=== PATIENT | female | born 1945 | race Caucasian/White ===

== ENCOUNTER → 2020-03-16 08:38 | Outpatient (CLI) | payer MEDICARE, SELFPAY ==
--- NOTE | ~2020-03-16 | US_ITS ---
US renal BI 03/16/2020 09:01 Procedure: Realtime transabdominal ultrasound of the kidneys and bladder. Indication: Chronic kidney disease Comparison: No prior studies for comparison. Findings: Renal echotexture is normal bilaterally without hydronephrosis, contour deforming mass or r enal calculus. There is a 2.6 cm right renal cyst. The right kidney measures 8.9 cm and left kidney m easures 9 cm. Bladder within normal limits. Impression: 1: Right renal cyst measuring 2.6 cm. Reviewed, dictated and finalized at location A. ERVATIONIST Impression: 1: Right renal cyst measuring 2.6 cm.
== END ==
PROVIDERS: PCP Nurse Practitioner; Visit Provider Internal Medicine Nephrology
DX: N18.31 Chronic kidney disease, stage 3a (principal); E11.29 Type 2 diabetes mellitus with other diabetic kidney complication; I12.9 Hypertensive chronic kidney disease with stage 1 through stage 4 chronic kidney disease, or unspecified chronic kidney disease; N28.1 Cyst of kidney, acquired
CPT/HCPCS: 76775

== ENCOUNTER 2024-10-26 09:00 | Outpatient (RCR) | payer MEDICARE, SELFPAY ==
--- NOTE | 2024-07-28 14:48 | OPREHPOC ---
Outpatient Therapy Plan of Care This is a Multidisciplinary Plan of Care that may contain components documented by all disciplines (PT, OT, and ST.) PT Problem 1 PT Problem #1 Knowledge Deficit PT Goal 1 Goal / Goal Update 1* independent with HEP 2* correct use of cane Target Visit 10 PT Problem 2 PT Problem #2 Impaired Strength PT Goal 1 Goal / Goal Update increase strength of L hip and knee, to improve transfer and gait skills 1* sit/stand with use of 1 UE x 5 reps 2* supine/sit without use of UEs on L leg 3* with walking, knee extension of 0' with stance phase Target Visit 10 PT Problem 3 PT Problem #3 Impaired Flexibility PT Goal 1 Goal / Goal Update *increase flexibility of R hip and knee, to improve transfer and mobility skills: 1* sitting knee flexion 120' 2* spine hip flexion 100' Target Visit 10 PT Problem 4 PT Problem #4 Impaired Functional Mobility PT Goal 1 Goal / Goal Update improve mobility skills, to be able to go out in community and return to her normal activities 1* 2 minute walking test distance of 300' with cane 2* 5 reps sit/stand time of 30 seconds with 1 UE use 3* Tinetti balance/gait score of 24/28 4* up/down 12 steps with 1 hand railing, independent Target Visit 10 PT Problem 5 PT Problem #5 Pain PT Goal 1 Goal / Goal Update 1* pt report pain rating at worst of L hip 08/16 2* pt report sleeping tolerance of 3 hours/time Target Visit 10
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
--- NOTE | 2024-08-31 10:43 | OPREHPOC ---
Outpatient Therapy Plan of Care This is a Multidisciplinary Plan of Care that may contain components documented by all disciplines (PT, OT, and ST.) PT Problem 1 PT Problem #1 Knowledge Deficit PT Goal 1 Goal / Goal Update 1* independent with HEP 2* correct use of cane 08-31-24 progress goals met continue to progress education Target Visit 16 PT Problem 2 PT Problem #2 Impaired Strength PT Goal 1 Goal / Goal Update increase strength of L hip and knee, to improve transfer and gait skills 1* sit/stand with use of 1 UE x 5 reps 2* supine/sit without use of UEs on L leg 3* with walking, knee extension of 0' with stance phase 08-31-24 progress goals 2,3 met continue towards goal 1 Target Visit 16 PT Problem 3 PT Problem #3 Impaired Flexibility PT Goal 1 Goal / Goal Update *increase flexibility of R hip and knee, to improve transfer and mobility skills: 1* sitting knee flexion 120' 2* spine hip flexion 100' 08-31-24 progress goal 2 met continue towards 1 Target Visit 16 PT Problem 4 PT Problem #4 Impaired Functional Mobility PT Goal 1 Goal / Goal Update improve mobility skills, to be able to go out in community and return to her normal activities 1* 2 minute walking test distance of 300' with cane 2* 5 reps sit/stand time of 30 seconds with 1 UE use 3* Tinetti balance/gait score of 24/28 4* up/down 12 steps with 1 hand railing, independent 08-31-24 progress improved, but goals not met: #2 to 34; #3 to 20/ 28; #4 with 1 rail and cane continue towards goals Target Visit 16 PT Problem 5 PT Problem #5 Pain PT Goal 1 Goal / Goal Update 1* pt report pain rating at worst of L hip 6/10 2* pt report sleeping tolerance of 3 hours/time 08-31-24 progress goal 2 met continue towards 1 goal Target Visit 16
--- NOTE | 2024-08-31 10:43 | PTOPPROG ---
Assessment and note entered by Elsie Trejo, PT Assessment Status Progress ICD-10 Condition Codes (PT) Difficulty Walking R26.2,Abnormalities of gait and mobility R26.9,Weakness R53.1,Encounter for other orthopedic aftercare Z47.89 Other ICD-10 Condition Codes ( S72.92XE femur fracture with intertroc nailing PT) Onset 06-06-24 Subjective Information doing better; able to do more---cooking, laundry, going out to [employer]; am not confident on the stairs yet; have been doing the exercises at home ; using the cane all the time at home now; legs are still swollen and itching; Assessment PT Clinical Summary Kesha has received a total of 9 PT sessions. Compared to the initial evaluation: pain range from 3-9/10 to 0-8/10; taking tramadol for pain- now taking tylenol only; reported sleeping tolerance from 2 hours at time to 1-3 hours at time due to hip pain; self assessment with LE functional scale rating from 81 to 58% limitation in activity level; L knee active flexion from 105 to 110'; 5 reps sit/stand time, with use of both UE, from 41 to 34 seconds; Tinetti balance/gait score from 16 to 20/18; 2 minute walking test distance from 160' with wheeled walker to 150' with cane; on 4 steps with bilateral hand rails to 8 steps with one hand railing and cane use. Education for HEP, gait training and safety with mobility. The goals were partially met. Continue PT, to further improve mobility and balance skills. Plan of Care Interventions Hot Pack/Cold Pack,Manual Therapy,Neuro Re- education,Patient/Caregiver Education,Therapeutic Activities,Therapeutic Exercise PT Services Indicated Yes Treatment Frequency and 1-2x/wk for 6 visits Duration These treatments will address the objective and functional deficits as defined above. The patient will be advanced safely and appropriately in order for the patient to progress towards his/her prior level of function. Additional exercises will be introduced and as well as a comprehensive home exercise program upon discharge, if needed, ?to ensure carryover of functional gains achieved in the clinic. This treatment plan has been reviewed and agreement upon by the patient.
--- NOTE | 2024-09-28 12:04 | OPREHPOC ---
Outpatient Therapy Plan of Care This is a Multidisciplinary Plan of Care that may contain components documented by all disciplines (PT, OT, and ST.) PT Problem 1 PT Problem #1 Knowledge Deficit PT Goal 1 Goal / Goal Update 1* independent with HEP 2* correct use of cane 09-28-24 MET Target Visit 16 Progress Met PT Problem 2 PT Problem #2 Impaired Strength PT Goal 1 Goal / Goal Update increase strength of L hip and knee, to improve transfer and gait skills 1* sit/stand with use of 1 UE x 5 reps 2* supine/sit without use of UEs on L leg 3* with walking, knee extension of 0' with stance phase 09-28-24 progress goals 2,3 met continue towards goal 1 Target Visit 21 PT Problem 3 PT Problem #3 Impaired Flexibility PT Goal 1 Goal / Goal Update *increase flexibility of R hip and knee, to improve transfer and mobility skills: 1* sitting knee flexion 120' 2* spine hip flexion 100' 09-28-24 progress goal 2 met continue towards 1, 112 deg currently Target Visit 21 Progress Partially Met PT Problem 4 PT Problem #4 Impaired Functional Mobility PT Goal 1 Goal / Goal Update improve mobility skills, to be able to go out in community and return to her normal activities 1* 2 minute walking test distance of 300' with cane 2* 5 reps sit/stand time of 30 seconds with 1 UE use 3* Tinetti balance/gait score of 24/28 4* up/down 12 steps with 1 hand railing, independent 09-28-24 progress improved, but goals not met: #1 to 195 feet #2 to 34 with B UE; #3 to 20/28; #4 with 1 rail and cane continue towards goals Target Visit 21 Progress Partially Met PT Problem 5 PT Problem #5 Pain PT Goal 1 Goal / Goal Update 1* pt report pain rating at worst of L hip 6/10 2* pt report sleeping tolerance of 3 hours/time 09-28-24 MET Target Visit 16 Progress Met
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
== END 2024-10-26 23:59 | disposition home or self-care (01) ==
LOC: ANHPT 09:00
PROVIDERS: PCP Nurse Practitioner; Visit Provider Orthopaedic Surgery
DX: S72.92XE Unspecified fracture of left femur, subsequent encounter for open fracture type I or II with routine healing (principal)
CPT/HCPCS: 97110; 97112; 97116; 97140; 97161; 97530

== ENCOUNTER 2024-10-31 11:38 | Outpatient (RCR) | payer MEDICARE, SELFPAY ==
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
== END 2024-10-31 13:04 | disposition home or self-care (01) ==
LOC: ANHPT 11:38
PROVIDERS: PCP Internal Medicine; Visit Provider Orthopaedic Surgery
DX: S72.92XE Unspecified fracture of left femur, subsequent encounter for open fracture type I or II with routine healing (principal)
CPT/HCPCS: 97530

== ENCOUNTER 2024-11-25 14:31 | Outpatient (CLI) | payer MEDICARE, SELFPAY ==
--- OUTSIDE RECORDS SUMMARY | 2011-12-25 09:30 | XMS_ITS | Continuity of Care Document ---
Author Organization [facility] Address [id number] [place] [address] [address] [place] [address] Phone Care Team Providers Care Web Services Professional Name Role Phone Jones VANEGAS MD, Jorge Unavailable Unavailable Procedures Procedure Date OFFICE/OUTPATIENT VISIT, [facility] SPECIAL EYE EXAM, INITIAL SPECIAL EYE EXAM, INITIAL OPHTHALMIC BIOMETRY OPHTHALMIC BIOMETRY Advance Directives Directive Yes / No Effective Date File Name No Information Encounters Encounter Description Practice Location Reason(s) For Visit Diagnoses Date Provider Providers Copied on Encounter OFFICE/OUTPA TIENT VISIT, [facility], [address], [place], [place], [id number], [place] tel:[phone] [facility] No Information 2 Jones Patel. [address], [address], [place], [place], [id number] , [place]. tel:[phone] Referring Provider: Jorge Goldman MD P, [address], [place], [address] . tel:[phone] Family History Family Member Type Diagnosis Age At Onset No Information Payers Payer name Insurance type Covered constitution party ID Pallavi clarke(s) [facility] CI [id number] Social History Type Description Quantity Date Captured Comments Sex Female Smoking Status No Information Chief Complaint And Reason For Visit No Information Reason For Referral Reason For Referral No Information History Of Present Illness Encounter Date Complaint History Of Prese nt Illness No Information Functional Status Date Functional Assessmen t No Information Instructions Date Instruction Additional Infor mation No Information Assessments Type Assessment Date No Information Patient Care Teams Name Effective Dates (start - stop) Status Members No Information
--- OUTSIDE RECORDS SUMMARY | 2024-11-25 14:33 | XMS_ITS | Clinical Summary ---
Author Organization [facility] Address [address] [place] [address] Phone Care Team Providers Care Tour Production Supervisor Name Role Phone Manolo Muniz DO Primary Care Provider [phone] Allergies Active Allergy Reactions Criticality Noted Date Comments Ciprofloxacin Anaphylaxis High 02/12/2020 Medications Accu-Chek Guide test strip 02/09/2020 Active levothyroxine (SYNTHROID) 112 MCG tablet 12/25/2019 Active lisinopril-hydroCH LOROthiazide (PRINZIDE) 20-12.5 MG per tablet 12/04/2019 Activ e metFORMIN (GLUCOPHAGE) 1000 MG tablet 01/02/2020 Active pravastatin (PRAVACHOL) 40 MG tablet 12/04/2019 Active Januvia 100 MG tablet 11/16/2019 Active Active Problems Problem Noted Date Diagnosed Date Chronic kidney disease Diabetes mellitus Hypertension Hypothyroidism Mixed hyperlipidemia Osteoarthritis Family History Medical History Relation Comments Bone cancer Father Multiple sclerosis Mother Relation Status Comments Father Mother Social History Tobacco Use Types Packs/Day Years Used Date Smoking Tobacco: Never Smokeless Tobacco: Never Alcohol Use Standard Drinks/Week Comments Never 0 (1 standard drink = 0.6 oz pur e alcohol) AUDIT-C Answer Date Recorded Q1: How often do you have a drink containing alc ohol? Never 02/12/2020 Q2: How many drinks containi ng alcohol do you have on a typical day when you are drinking? Not asked 02/12/2020 Q3: How often do you have six or more drinks on one occasion? Never 02/12/2020 Comments Unknown Sex and Gender Information Value Date Recorded Sex Assigned at Not on file Legal Sex Female 12:09 PM MDT Gender Identity Not on file Sexual Orientation Not on file Last Filed Vital Signs Vital Sign Reading Time Taken Comments Blood Pressure 134/72 04/18/2020 1:05 PM [employer] Pulse - - Temperature 35.8 C (96.5 F) 04/18/2020 1:05 PM [employer] Respiratory Rate 18 04/18/2020 1:05 PM [employer] Oxygen Saturation - - Inhaled Oxygen Concentration - - Weight 95.3 kg (210 lb) 04/18/2020 1:05 PM [employer] Height 172.7 cm (5' 8) 04/18/2020 1:05 PM [employer] Body Mass Index 31.93 04/18/2020 1:05 PM [employer] Plan of Treatment Health Maintenance Due Date Last Done Comments Pneumococcal PPSV23/PCV13 65 + Years / Low and Medium Risk (1 of 2 - PCV) 09/11/1993 Influenza Vaccine (#1) 2024 Insurance [facility]IC[facility]VANT[facility] Member Subscriber Plan / Payer (Ef fective 2019-Present) Name:Kesha Olsen Member ID:[id number] HMO Relation to Subscriber:Self Name:Kesha Olsen Subscriber ID:[id number] HMO Payer ID:[id number] Type:Not on file Address: [facility] [address] [place] [address] Care Teams Tour Production Supervisor Relationship Specialty Start Date End Date Manolo Muniz DO [address] [place] [id number] PCP - General Internal Medicine 12/29/19
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
--- NOTE | 2024-11-25 14:39 | ECHO_ITS ---
Patient Info Name: Kesha Olsen Age: 79 years : 1945 Gender: Female Ht: 68 in Wt: 195 lbs BSA: 2.08 m2 HR: 85 bpm BP: 179 / 84 mmHg Technical Quality: Good Exam Date: 11/25/2024 2:51 PM Patient Status: unknown Admit Date: 11/25/2024 Exam Type: CA echo doppler color flow Complete two-dimensional, color flow and Doppler transthoracic echocardiogram is performed. Broke Beater: Swapnil Cagle III Attending Provider: Soledad Flores [facility] Summary 1. Complete two-dimensional, color flow and Doppler transthoracic echocardiogram is performed. 2. Left ventricular chamber dimension is normal. 3. Left ventricular systolic function is normal, estimated at 60-65. 4. There is mild concentric increased left ventricular wall thickness. 5. The left ventricular diastolic function is grade I diastolic dysfunction. 6. E/e' 13 is mildly elevated. 7. Left atrial chamber dimension is mildly enlarged. 8. There is moderate aortic valve sclerosis. 9. There is trace aortic valve regurgitation. 10. The mitral valve has a mildly calcified annulus. 11. There is trace mitral valve regurgitation. Left Ventricle Left ventricular chamber dimension is normal. Left ventricular systolic function is normal, estimated at 60-65. There is mild concentric increased left ventricular wall thickness. The left ventricular diastolic function is grade I diastolic dysfunction. E/e' 13 is mildly elevated. Right Ventricle Right ventricular chamber dimension is normal. Right ventricular systolic function is normal and with normal TAPSE 2.4 cm. Left Atria Left atrial chamber dimension is mildly enlarged. Right Atria Right atrial chamber dimension is normal. Aortic Valve The aortic valve is trileaflet. There is moderate aortic valve sclerosis. There is no aortic valve stenosis. There is trace aortic valve regurgitation. Pulmonic Valve There is no pulmonic regurgitation. Mitral Valve The mitral valve has a mildly calcified annulus. There is no mitral valve stenosis. There is trace mitral valve regurgitation. Tricuspid Valve There is no tricuspid valve regurgitation. Pericardium/Pleural There is no pericardial effusion. Inferior Vena Cava Normal inferior vena cava with >50% collapse upon inspiration consistent with normal right atrial pressure, 5 mmHg. Aorta The aortic root size at the sinus of Valsalva is normal. Left Ventricular Outflow Tract Name Value Normal LVOT 2D LVOT Diameter 2.0 cm LVOT Doppler LVOT Peak Velocity 125 cm/s LVOT Peak Gradient 6 mmHg LVOT Mean Gradient 3 mmHg LVOT VTI 37 cm LVOT VTI/AV VTI Ratio 0.9 LVOT Stroke Volume 112 ml LVOT CO 15.0 l/min LVOT CI 7.2 l/min/m2 Pulmonic Valve Name Value Normal PV Doppler PV Peak Velocity 158 cm/s PV Peak Gradient 8 mmHg Mitral Valve Name Value Normal MV Doppler MV Peak Gradient 15 mmHg MV Mean Gradient 6 mmHg MV Area (Cont Eq VTI) 2.7 cm2 MV Diastolic Function MV E Peak Velocity 112 cm/s MV A Peak Velocity 180 cm/s MV E/A 0.6 MV Decel Time (PW) 269 ms MV Annular TDI MV E/e' (Septal) 17.0 MV E/e' (Lateral) 11.7 MV E/e' (Average) 14.3 Tricuspid Valve Name Value Normal TV Regurgitation Doppler TR Peak Velocity 128 cm/s TR Peak Gradient 7 mmHg Estimated PAP/RSVP RA Pressure 5 mmHg <=5 PA Systolic Pressure 12 mmHg <36 RV Systolic Pressure 12 mmHg <36 TV Annular TDI TV Lateral Jil s' Velocity 18.0 cm/s >=9.5 Aortic Valve Name Value Normal AV Doppler AV Peak Velocity 208 cm/s AV Peak Gradient 17 mmHg AV Mean Gradient 9 mmHg AV VTI 44 cm AV Area (Cont Eq VTI) 2.6 cm2 >=3.0 AV Area (Cont Eq Heladio) 1.8 cm2 AV DI (Heladio) 0.60 AV Regurgitation 2D LVOT Area 3.0 cm2 Ventricles Name Value Normal LV Dimensions 2D/MM IVS Diastolic Thickness (2D) 4.1 cm 0.6-1.0 LVID Diastole (2D) 4.1 cm 3.8-5.2 LVID Systole (2D) 3.0 cm 2.2-3.5 LVOT Diameter 2.0 cm LV Fractional Shortening/Ejection Fraction 2D/MM LV Fractional Shortening (2D) 27 % 27-45 LV EF (2D Teichholz) 54 % LV Diastolic Volume (4C MOD) 107 ml LV EF (4C MOD) 66 % LV Diastolic Volume (2C MOD) 96 ml LV EF (2C MOD) 66 % LV Diastolic Volume (BP MOD) 104 ml 46-106 LV Diastolic Volume Index (BP MOD) 50 ml/m2 29-61 LV Systolic Volume (BP MOD) 36 ml 14-42 LV Systolic Volume Index (BP MOD) 17 ml/m2 8-24 LV EF (BP MOD) 65 % 54-74 LV Diastolic Length (4C) 7.8 cm LV Systolic Length (4C) 5.9 cm LV Stroke Volume (4C MOD) 71 ml Atria Name Value Normal LA Dimensions LA Volume (4C A-L) 89 ml LA Volume (BP A-L) 82 ml RA Dimensions RA Area (4C) 17.4 cm2 <=18.0 Report Signatures
== END 2024-11-25 14:32 | disposition home or self-care (01) ==
PROVIDERS: PCP Clinical Nurse Specialist; Visit Provider Clinical Nurse Specialist
DX: I51.89 Other ill-defined heart diseases (principal); I35.8 Other nonrheumatic aortic valve disorders; I34.81 Nonrheumatic mitral (valve) annulus calcification
CPT/HCPCS: 93306